=== PATIENT | female | born 1965 | race Caucasian/White ===

== ENCOUNTER 2017-08-14 14:55 | Outpatient (CLI) | payer BC ==
--- NOTE | 2017-08-14 16:41 | MMO ---
BILATERAL SCREENING MAMMOGRAMS: DATE: 08/14/17 Comparison made to 02/21/16. This patient's mammogram was interpreted with the assistance of computer-aided detection. FINDINGS: There are scattered fibroglandular elements bilaterally. No evidence of a new dominant mass, suspici ous clustering of microcalcification, or architectural distortion. There is a benign-appearing punctate calcification within the right breast. IMPRESSION: BIRADS 2: Benign Finding(s) Annual screening mammography is recommended. POS: RAYMUNDO
== END 2017-08-14 14:56 | disposition home or self-care (01) ==
LOC: SCSMAMMO 14:55
PROVIDERS: ATTEND Family Medicine
DX: Z12.31 Encounter for screening mammogram for malignant neoplasm of breast (principal)
CPT/HCPCS: 77067; G0202

== ENCOUNTER 2018-03-29 13:42 | Emergency (ER) | payer BC ==
[2018-03-29] MEDS ORDERED: Ketorolac Tromethamine 30 MG/ML VIAL ONE (16:16)
[2018-03-29] MEDS ORDERED: Diazepam 5 MG TAB ONE (16:19)
--- NOTE | 2018-03-29 16:51 | RAD ---
LEFT FEMUR 2 VIEWS: Date: 03/29/18 HISTORY: Thigh pain after rollerblading. FINDINGS: There are no signs of fracture or dislocation. IMPRESSION: Negative left femur. POS: RAYMUNDO
== END 2018-03-29 16:42 | disposition home or self-care (01) ==
LOC: ERS 13:42
DX: S76.112A Strain of left quadriceps muscle, fascia and tendon, initial encounter (principal); S39.011A Strain of muscle, fascia and tendon of abdomen, initial encounter; F32.9 Major depressive disorder, single episode, unspecified; Z79.899 Other long term (current) drug therapy; V00.121A Fall from non-in-line roller-skates, initial encounter; Y93.51 Activity, roller skating (inline) and skateboarding
CPT/HCPCS: 96372; J1885

== ENCOUNTER 2018-06-25 11:18 | Outpatient (CLI) | payer BC ==
--- NOTE | 2018-06-25 13:01 | RAD ---
LEFT HIP TWO VIEWS: History: Left hip pain. FINDINGS: Mild joint space narrowing, osteophytosis and subchondral sclerosis. No acute fracture, dislocation, or aggressive osseous erosions. Femoral head contour is maintained. IMPRESSION: Mild osteoarthritic changes left hip. POS: RAYMUNDO
--- NOTE | 2018-06-25 13:04 | RAD ---
LEFT KNEE FOUR VIEWS: History: Left knee pain. FINDINGS: Joint spaces are preserved. Minimal osteophytosis. No acute fracture, dislocation or fluid distention of the suprapatellar bursa. IMPRESSION: No acute osseous abnormalities are demonstrated. POS: RAYMUNDO
== END 2018-06-25 11:19 | disposition home or self-care (01) ==
LOC: SCSRAD 11:18
PROVIDERS: ATTEND Family Medicine
DX: M25.552 Pain in left hip (principal); M25.562 Pain in left knee; M16.12 Unilateral primary osteoarthritis, left hip

== ENCOUNTER 2020-03-16 19:30 | Outpatient (CLI) | payer BC | END 2020-03-16 19:31 | disposition home or self-care (01) | LOC: SLEEPLAB 19:30 | PROVIDERS: ATTEND Family Medicine | DX: G47.33 Obstructive sleep apnea (adult) (pediatric) (principal); R53.83 Other fatigue; R06.83 Snoring; E66.9 Obesity, unspecified; Z68.42 Body mass index [BMI] 45.0-49.9, adult | CPT/HCPCS: 95811 ==